=== PATIENT | female | born 1985 | race Caucasian/White ===

== ENCOUNTER → 2016-08-20 | Outpatient (CLI) | payer OTHER ==
[~2016-08-20] MED LIST: ACETAMINOPHEN500 M4 PO; CLONAZEPAM0.5 MG PO; EFFEXOR XR PO; LEVOTHYROXINE25 MCG PO; PROPRANOLOL PO; SEROQUEL XR300 MG PO
== END | disposition home or self-care (01) ==
LOC: CBAR 09:46
DX: Z01.812 Encounter for preprocedural laboratory examination (principal); E66.01 Morbid (severe) obesity due to excess calories
CPT/HCPCS: 36415; 84443; 86677; G0463

== ENCOUNTER → 2017-01-03 | Outpatient (CLI) | payer OTHER ==
--- NOTE | ~2017-01-03 | EKG ---
PATIENT: MENG RIVERA UNIT #: [id number] Ventricular Rate: 84 BPM Atrial Rate: 84 BPM P-R Interval: 144 ms QRS Duration: 84 ms Q-T Interval: 372 ms QTC Calculation(Bezet): 439 ms P [place]: 32 degrees Calculated R [place]: 14 degrees Calculated T [place]: 31 degrees Diagnosis Line: Normal sinus rhythm Diagnosis Line: Low voltage QRS Diagnosis Line: Borderline ECG Diagnosis Line: No previous ECGs available Diagnosis Line: Confirmed by MEERA VALENTINO MD ([id number]) on Diagnosis Line: 01/03/2017 11:38:51 AM INTERPRETING MD: CHICHO CALABRESE
--- NOTE | ~2017-01-03 | CR97 ---
[facility] A Service of [facility] RADIOLOGY TEXT RESULTS PATIENT: MENG RIVERA LOCATION: [facility] : 83 UNIT #: [id number] AGE: [address]: Matthias Howard III, MD SEX: F ORDER DR: [id number] [place], [place] [address] [id number] O MR#: [id number] Acc #: [id number] NAME: MENG RIVERA : 1985 SEX: F STUDY DATE/TIME: 01/03/2017 8:56 UNIT: [facility] ROOM: STUDY DESCRIPTION: CR Esophagram Attending Physician: Matthias Howard III, M.D. Referring Physician: Matthias Howard III, M.D. Ordering Physician: Matthias Howard III, M.D. Primary Care Physician: Day Coy A.P.R.N. MEDICAL IMAGING REPORT This report is preliminary unless electronic signature is present EXAM Single contrast barium esophagram INDICATION Preoperative examination prior to laparoscopic gastric banding procedure. TECHNIQUE Patient was administered thin barium and multiple fluoroscopic images were obtained. FINDINGS The thoracic esophagus is normal in caliber. There is no evidence of stricture or mass lesion. Esophageal motility was within normal limits. No hiatal hernia was seen. Total fluoroscopy time was 0.7 minutes and a total of 10 fluoroscopic images were obtained. IMPRESSION Normal single contrast barium esophagram. Dictated by... Елена Arboleda M.D. THIS IS AN ELECTRONICALLY VERIFIED REPORT Елена Arboleda M.D. at 01/06/2017 4:54 PM LENA/marcos TD: 01/06/2017 13:53 JOB #: [id number] MEDICAL IMAGING REPORT Page 1 of 1 COPY
--- NOTE | ~2017-01-03 | CR63 ---
[facility] A Service of [facility] RADIOLOGY TEXT RESULTS PATIENT: MENG RIVERA LOCATION: [facility] : 81 UNIT #: [id number] AGE: [address]: Matthias Howard III, MD SEX: F ORDER DR: [id number] [facility] [address] [place], [place] [address] [id number] O MR#: [id number] Acc #: [id number] NAME: MENG RIVERA : 1985 SEX: F STUDY DATE/TIME: 01/03/2017 8:37 UNIT: [facility] ROOM: STUDY DESCRIPTION: CR Chest 2 View Attending Physician: Matthias Howard III, M.D. Referring Physician: Matthias Howard III, M.D. Ordering Physician: Matthias Howard III, M.D. Primary Care Physician: Day Coy A.P.R.N. MEDICAL IMAGING REPORT This report is preliminary unless electronic signature is present EXAMINATION PA and lateral chest. DATE 01/03/2017 HISTORY 31-year-old female undergoing preoperative evaluation for laparoscopic gastric banding procedure. COMPARISON PA and lateral chest radiograph, 11/24/2014, could not be retrieved from archives due to computer malfunction. Current study will be interpreted without the benefit of fat comparison exam. FINDINGS Lungs are clear. Heart size is borderline enlarged. Pulmonary vascular distribution is normal. No pleural effusion or pneumothorax is seen. No acute osseous abnormalities. IMPRESSION Borderline cardiac enlargement. No acute chest findings. Dictated by... April Barr M.D. THIS IS AN ELECTRONICALLY VERIFIED REPORT April Barr M.D. at 01/06/2017 8:49 AM CHRIS/jc TD: 01/03/2017 19:27 [facility] A Service of [facility] RADIOLOGY TEXT RESULTS PATIENT: MENG RIVERA LOCATION: [facility] : 81 UNIT #: [id number] AGE: [address]: Matthias Howard III, MD SEX: F ORDER DR: JOB #: [id number] MEDICAL IMAGING REPORT Page 1 of 1 COPY
[2017-01-03 10:03] LABS: HEMATOCRIT 31.8 % (35.0-45.0); HEMOGLOBIN 10.1 gm/dL (12.0-16.0); MEAN CELL VOLUME 73.6 FL (83-96); MEAN CORPUSCULAR HEMOGLOBIN 23.3 PG (28-34); MEAN CORPUSCULAR HGB CONC 31.7 g/dL (30-36); MEAN PLATELET VOLUME 6.8 FL (6.5-11.5); RED BLOOD COUNT 4.32 X10e (3.90-5.30)
[2017-01-03 11:08] LABS: ALBUMIN SERUM 3.4 g/dL (3.5-5.0); BILIRUBIN,TOTAL 0.5 mg/dL (0.2-2.0); CALCIUM SERUM 8.6 mg/dL (8.4-10.2); CREATININE SERUM 0.7 mg/dL (0.6-1.4); GLOM FILT RATE Estimated 113.8 mL/min (>60); POTASSIUM 4.5 mmol/L (3.5-5.1); PROTEIN TOTAL SERUM 6.6 g/dL (6.0-8.3)
== END | disposition home or self-care (01) ==
LOC: CRAD 08:16 → CAMB 10:00
PROVIDERS: Surgery
DX: Z01.818 Encounter for other preprocedural examination (principal); I51.7 Cardiomegaly
CPT/HCPCS: 36415; 71020; 74220; 80053; 80061; 84443; 85027; 93005